=== PATIENT | female | born 1985 | race African-American/Black ===

== ENCOUNTER 2016-07-31 10:22 | Emergency (ER) | payer MEDICAID ==
[~2016-07-31] VITALS: Ht 152.4 cm; Wt 75.7 kg
[~2016-07-31 10:22] MED LIST: AML5T GT; ENAL5TAB92 PO; LORA1TAB12 PO; NOR10T PO; OMEP20CA5 PO
[2016-07-31 10:45] VITALS: BP 139/78
[2016-07-31 10:55] LABS: Urine Bilirubin Negative (Negative); Urine Blood 1+ /uL (Negative); Urine Color Yellow (Yellow); Urine Glucose Normal (Normal); Urine Ketone Negative (Negative); Urine Nitrite Negative (Negative); Urine RBC 14 /hpf (0 - 4); Urine Squamous Epithelial Cell MOD /hpf (<5); Urine Urobilinogen Normal (Negative)
[2016-07-31] MEDS ORDERED: cefTRIAXone SOD 1,000 MG VL IM ONE (12:15)
[2016-07-31] MEDS ORDERED: KETOROLAC TROMETH 60MG/2ML VIAL IM ONE (12:15)
== END 2016-07-31 12:48 | disposition home or self-care (01) ==
LOC: ER 10:22
DX: N39.0 Urinary tract infection, site not specified (principal); M54.5 Low back pain; K21.9 Gastro-esophageal reflux disease without esophagitis; I10 Essential (primary) hypertension; Z79.899 Other long term (current) drug therapy
CPT/HCPCS: 81001; 81025; 96372; 99284; J0696; J1885

== ENCOUNTER 2016-09-10 19:40 | Emergency (ER) | payer MEDICAID ==
[~2016-09-10] VITALS: Ht 152.4 cm; Wt 74.8 kg
[~2016-09-10 19:40] MED LIST changes: -OMEP20CA5 PO; +OMEP20CA74 PO
[2016-09-10 21:23] VITALS: BP 150/91
== END 2016-09-10 21:32 | disposition home or self-care (01) ==
LOC: ER 19:42
DX: J35.01 Chronic tonsillitis (principal); K21.9 Gastro-esophageal reflux disease without esophagitis; I10 Essential (primary) hypertension; Z98.890 Other specified postprocedural states

== ENCOUNTER 2016-10-21 10:59 | Emergency (ER) | payer MEDICAID ==
[~2016-10-21] VITALS: Ht 152.4 cm; Wt 75.7 kg
[2016-10-21 14:06] VITALS: BP 153/98
== END 2016-10-21 14:19 | disposition home or self-care (01) ==
LOC: ER 10:59
DX: S86.912A Strain of unspecified muscle(s) and tendon(s) at lower leg level, left leg, initial encounter (principal); S46.912A Strain of unspecified muscle, fascia and tendon at shoulder and upper arm level, left arm, initial encounter; Z79.899 Other long term (current) drug therapy; K21.9 Gastro-esophageal reflux disease without esophagitis; I10 Essential (primary) hypertension; X58.XXXA Exposure to other specified factors, initial encounter; Y93.89 Activity, other specified; Y92.89 Other specified places as the place of occurrence of the external cause; Y99.8 Other external cause status
CPT/HCPCS: 93971

== ENCOUNTER 2019-06-03 23:16 | Emergency (ER) | payer MEDICAID ==
[~2019-06-03] VITALS: Ht 152.4 cm; Wt 75.3 kg
[~2019-06-03 23:16] MED LIST changes: +ENAL5TAB PO; -ENAL5TAB92 PO
[2019-06-04 00:34] LABS: Urine Bacteria FEW /hpf (None Seen); Urine Blood Negative /uL (Negative); Urine Mucus FEW (None Seen); Urine Specific Gravity 1.017 (1.001-1.035); Urine WBC 17 /hpf (0 - 5)
[2019-06-04 00:47] VITALS: BP 114/78
== END 2019-06-04 00:59 | disposition home or self-care (01) ==
LOC: ER 23:18
DX: A08.4 Viral intestinal infection, unspecified (principal); N39.0 Urinary tract infection, site not specified; K21.9 Gastro-esophageal reflux disease without esophagitis; I10 Essential (primary) hypertension; Z91.013 Allergy to seafood; Z32.02 Encounter for pregnancy test, result negative
CPT/HCPCS: 81001; 81025

== ENCOUNTER 2019-10-18 11:28 | Emergency (ER) | payer MEDICAID ==
[~2019-10-18] VITALS: Ht 152.4 cm; Wt 73.5 kg
[~2019-10-18 11:28] MED LIST changes: -LORA1TAB12 PO; +LORA1TAB23 PO
[2019-10-18] MEDS ORDERED: SODIUM CHLORIDE 0.9% 1,000 ML IV ONE (11:52)
[2019-10-18] MEDS ORDERED: ONDANSETRON HCL 4 MG/2 ML VIAL IV ONE (12:00)
[2019-10-18 12:18] LABS: Basophils # (auto) 0.1 10 ^3/uL (0-0.2); Eosinophils # (auto) 0.1 10 ^3/uL (0-0.8); Hemoglobin 9.6 g/dL (12.2-16.2); Neutrophils # (auto) 3.6 10 ^3/uL (1.6-8.6); Red Cell Distribution Width 19.3 % (11.8-14.3)
[2019-10-18 12:20] LABS: Basophils % (auto) 0.8 % (0.0-2.0); Eosinophils % (auto) 1.9 % (0.0-7.0); Hematocrit 31.3 % (36.0-46.0); Lymphocytes # (auto) 2.3 10 ^3/uL (0.4-5.4); Lymphocytes % (auto) 34.9 % (10.0-50.0); Mean Corpuscular Hemoglobin 23.2 pg (28.0-32.0); Mean Corpuscular Hgb Conc. 30.6 g/dL (32.0-36.0); Mean Corpuscular Volume 75.8 fL (80.0-100.0); Monocytes # (auto) 0.5 10 ^3/uL (0-1.3); Monocytes % (auto) 7.7 % (0.0-12.0); Neutrophils % (auto) 54.7 % (37.0-80.0); Nucleated Red Blood Cells % 0.1 %; Red Blood Cells 4.12 10^6/uL (4.0-5.20); White Blood Cell 6.5 10^3/uL (4.4-10.8)
[2019-10-18 12:31] LABS: Platelet Count (auto) 569 10^3/uL (140-450)
[2019-10-18 12:33] LABS: Albumin 2.8 g/dL (3.4-5.0); Calcium 8.8 mg/dL (8.5-10.1); Potassium 3.6 mmol/L (3.5-5.1)
[2019-10-18 12:37] LABS: BUN/Creatinine Ratio 21.1; Bilirubin, Total 0.2 mg/dL (0.2-1.0); Total Protein 8.1 g/dL (6.4-8.2)
[2019-10-18 12:57] LABS: Urine Bacteria FEW /hpf (None Seen); Urine Blood 2+ /uL (Negative); Urine Budding Yeast FEW /hpf (None Seen); Urine Mucus FEW (None Seen); Urine Specific Gravity 1.015 (1.001-1.035); Urine WBC 188 /hpf (0 - 5)
[2019-10-18 14:22] VITALS: BP 122/84
== END 2019-10-18 14:24 | disposition home or self-care (01) ==
LOC: ER 11:28
DX: N39.0 Urinary tract infection, site not specified (principal); R05 Cough; K21.9 Gastro-esophageal reflux disease without esophagitis; I10 Essential (primary) hypertension; R11.2 Nausea with vomiting, unspecified
CPT/HCPCS: 36415; 80053; 81001; 83690; 85025; 96361; 96374; 99283; J2405; J7030

== ENCOUNTER 2021-01-15 20:25 | Emergency (ER) | payer MEDICAID ==
[~2021-01-15] VITALS: Ht 167.6 cm; Wt 83.0 kg
[~2021-01-15 20:25] MED LIST changes: -ENAL5TAB PO; +ENAL5TAB10 PO
[2021-01-15 20:39] VITALS: BP 128/76
== END 2021-01-15 20:49 | disposition left against medical advice (07) ==
LOC: ER 20:25 → EDBD 20:25 → ER 20:49
DX: R55 Syncope and collapse (principal); Z53.21 Procedure and treatment not carried out due to patient leaving prior to being seen by health care provider